=== PATIENT | male | born 1940 ===

== ENCOUNTER 2018-11-20 09:57 | Emergency (ER) | payer MEDICARE, OTHER ==
[2018-11-20 10:04] VITALS: O2SAT 98
--- NOTE | 2018-11-20 10:25 | C.PDOC ---
History Of Present Illness 78 y/o male pt presents to the ER c/o cough associated with sore throat and body aches for x3 days. Pt has multiple sick contacts at home. Pt notes he took theraflu with mild relief. He denies flu vaccination, abdominal pain, SOB, na usea, vomiting, diarrhea, ear pain and chills. Time Seen by Provider: 11/20/18 10:11 Chief Complaint (Nursing): Flu-like Symptoms History Per: Patient History/Exam Limitations: no limitations Onset/Duration Of Symptoms: Days (x3) Current Symptoms Are (Timing): Still Present Past Medical History Reviewed: Historical Data, Nursing Documentation, Vital Signs Vital Signs: Last Vital Signs Temp 100 F H 11/20/18 10:00 Pulse 142 H 11/20/18 10:00 Resp 18 11/20/18 10:00 BP 160/83 H 11/20/18 10:00 Pulse Ox 98 11/20/18 10:00 Family History: States: No Known Family Hx - Social History Hx Alcohol Use: No Hx Substance Use: No - Immunization History Hx Tetanus Toxoid Vaccination: No Hx Influenza Vaccination: No Hx Pneumococcal Vaccination: No Review Of Systems Constitutional: Positive for: Other (multiple sick contacts). Negative for: Chills ENT: Positive for: Throat Pain. Negative for: Ear Pain Respiratory: Positive for: Cough. Negative for: Shortness of Breath Gastrointestinal: Negative for: Nausea, Vomiting, Abdominal Pain, Diarrhea Musculoskeletal: Positive for: Other (body aches) Physical Exam - Physical Exam Appears: Non-toxic, No Acute Distress Skin: No Rash Head: Atraumatic, Normacephalic Eye(s): bilateral: PERRL, EOMI Nose: Normal Oral Mucosa: Moist Throat: Erythema, Other (mildly enlarged erythematous uvula ) Chest: Symmetrical, No Deformity Cardiovascular: Other (tachycardiac) Respiratory: Normal Breath Sounds, No Rales, No Rhonchi, No Wheezing Gastrointestinal/Abdominal: Soft, No Tenderness Extremity: Normal ROM (x4), No Tenderness, No Pedal Edema, No Swelling Neurological/Psych: Oriented x3, Normal Speech ED Course And Treatment - Laboratory Results Result Diagrams: 11/20/18 10:38 11/20/18 10:38 O2 Sat by Pulse Oximetry: 98 (RA) Pulse Ox Interpretation: Normal - Other Rad chest X-Ray: Read By Radiologist Interpretation: IMPRESSION: No focal consolidation. Medical Decision Making Medical Decision Making: Impression: cough with sore throat and bodyaches Plans: -- Chem labs -- blood work -- CXR -- Influenza A B stat -- Rapid Strep group Reassess: On reassessment, patient is resting comfortably, and is in no acute distress, and feeling better. patient and advised pt will fell unwell for a few days due to flu, continue tylenol or motrin, return if feeling worse/ Patient was instructed to follow up with pmd in 1-2 days for further evaluation, return for any worse symptoms. Disposition Counseled Patient/Family Regarding: Studies Performed, Diagnosis, Need For Followup, Rx Given - Disposition Referrals: Corazon Alonso MD [Medical Doctor] - Disposition: HOME/ ROUTINE Disposition Time: 13:50 Condition: GOOD Additional Instructions: Aumentar el reposo en cama. [place] Tamiflu segn las indicaciones hasta que se complete. Tylenol o Motrin cada 4 horas para el dolor o la fiebre. Recomiendo conseguir un termmetro para comprobar. Filemon un seguimiento con tian mdico en 1-2 lora. Regrese a la sven de emergencias por cualquier empeoramiento de los sntomas Increase bed rest. Take Tamiflu as directed until completed. Tylenol or Motrin every 4 hours for pain or fever. Recommend getting a thermometer to check. Fo llow up with your doctor in 1-2 days. Return to ER for any worsening symptoms. Prescriptions went to [facility] Prescriptions: Acetaminophen [Tylenol 325mg tab] 650 mg PO Q6 #30 tab Ibuprofen [Motrin] 600 mg PO TID #30 tab Oseltamivir Cap [Tamiflu] 75 mg PO BID #9 cap Instructions: Flu, Adult (DC) Forms: Gen Discharge Inst [place]ese, Wedit ([place]ese) Print Language: KAZAKH - Clinical Impression Clinical Impression: Influenza - PA / GRE[employer]TER / Resident Statement / has reviewed & agrees with the documentation as recorded. - Scribe Statement The provider has reviewed the documentation as recorded by the Steve Green Do All medical record entries made by the Scribe were at my direction and personally dictated by me. I have reviewed the chart and agree that the record accurately reflects my personal performance of the history, physical exam, medical decision making, and the department course for this patient. I have also personally directed, reviewed, and agree with the discharge instructions and disposition.
[2018-11-20 10:42] LABS: BASO # 0.1 K/uL (0.0-0.2); BASO % 0.5 % (0.0-2.0); EOS % 0.1 % (0.0-4.0); HEMOGLOBIN 15.9 g/dL (12.0-18.0); LYMPH # 3.5 K/uL (1.0-4.3); LYMPH % 25.7 % (20.0-40.0); MEAN CELL VOLUME 89.9 fL (80.0-94.0); MEAN CORPUSCULAR HEMOGLOBIN 30.7 pg (27.0-31.0); MEAN CORPUSCULAR HGB CONC 34.1 g/dL (33.0-37.0); MEAN PLATELET VOLUME 7.1 fL (7.2-11.7); MONO # 1.2 K/uL (0.0-0.8); MONO % 8.6 % (0.0-10.0); NEUT # 8.8 K/uL (1.8-7.0); NEUT % 65.1 % (50.0-75.0); NRBC % 0.2 % (0.0-2.0); RBC 5.17 Mil/uL (4.40-5.90); RED CELL DISTRIBUTION WIDTH 13.7 % (11.5-14.5); WHITE BLOOD COUNT 13.5 K/uL (4.8-10.8)
[2018-11-20 10:55] LABS: ALB/GLOB RATIO 1.3 (1.0-2.1); ALBUMIN 4.4 g/dL (3.5-5.0); ALT/SGPT 30 U/L (21-72); AST/SGOT 27 U/L (17-59); BLOOD UREA NITROGEN 17 mg/dL (9-20); CALCIUM 8.9 mg/dl (8.6-10.4); GFR NON-AFRICAN AMERICAN 59
--- NOTE | 2018-11-20 11:19 | RAD ---
HISTORY: SOB COMPARISON: None available. TECHNIQUE: Chest PA and lateral FINDINGS: LUNGS: Mild biapical pleural thickening. No focal consolidation. Please note that chest x-ray has limited sensitivity for the detection of pulmonary masses. PLEURA: No significant pleural effusion identified. No definite pneumothorax . CARDIOVASCULAR: Heart size is top-normal. No atherosclerotic calcification present. OSSEOUS STRUCTURES: Degenerative changes of the spine. VISUALIZED UPPER ABDOMEN: Mild elevation of the right hemidiaphragm. OTHER FINDINGS: None. IMPRESSION: No focal consolidation.
[2018-11-20 11:32] LABS: VENOUS BLOOD GAS BASE EXCESS -0.3 mmol/L (0.0-2.0); VENOUS BLOOD GAS PCO2 32 mmHg (40-60); VENOUS BLOOD GAS PO2 53 mm/Hg (30-55); VENOUS BLOOD PH 7.46 (7.32-7.43)
[2018-11-20 13:14] VITALS: BP 126/73; PULSE 104; RESP 17; TEMP 98.5
== END 2018-11-20 14:10 | disposition home or self-care (01) ==
LOC: C.ER 09:57
DX: J11.1 Influenza due to unidentified influenza virus with other respiratory manifestations (principal)